=== PATIENT | male | born 1955 | race Caucasian/White ===

== ENCOUNTER 2021-06-22 08:59 | Emergency (ER) | payer MEDICARE, BC ==
--- NOTE | 2021-06-22 09:48 | EDM.PDOC ---
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 No fever, chills, or SOB. He has had some nasal discharge and sneezing. Does not feel ill. Took generic Contact recently and is feeling a bit better. I worried he is getting pneumonia. Onset: Gradual Onset Date: 06/16/21 Duration: Day(s): (6) Location: Reports: Chest Quality: Reports: Other (no pain) Severity: Mild Improves with: Reports: Other (? being upright) Worsens with: Reports: Other (lying down) Context: Reports: Other (See HPI) Associated Symptoms: Reports: Cough. Denies: Chest Pain, Fever/Chills, Shortness of Breath Treatments TIME RECORDER: Reports: Other (see below) (generic Contact) - Related Data Allergies Allergy/AdvReac Type Severity Reaction Status Date / Time No Known Allergies Allergy Verified 06/22/21 09:24 Home Meds: Home Meds Pravastatin [Pravachol] 40 mg PO DAILY 06/22/21 [History] glipiZIDE [Glucotrol] 5 mg PO DAILY 06/22/21 [History] lisinopriL [Lisinopril] 20 mg PO DAILY 06/22/21 [History] metFORMIN [Glucophage] 2.5 tab PO BID 06/22/21 [History] Social & Family History - Tobacco Use Tobacco Use Status *Q: Never Tobacco User ED ROS GENERAL - Review of Systems Review Of Systems: See Below Constitutional: Reports: No Symptoms HEENT: Reports: Rhinitis Respiratory: Reports: Cough. Denies: Shortness of Breath, Wheezing, Pleuritic Chest Pain, Sputum, Hemoptysis Cardiovascular: Reports: No Symptoms Skin: Reports: No Symptoms ED EXAM, GENERAL - Physical Exam Exam: See Below Exam Limited By: No Limitations General Appearance: Alert, WD/WN, No Apparent Distress Eye Exam: Bilateral Eye: Normal Inspection Ears: Normal External Exam, Normal Canal, Normal TMs, Hearing Loss, Other (bilat hearing aids). No: Hearing Grossly Normal Ear Exam: Bilateral Ear: Auricle Normal, Canal Normal, TM normal Nose: Normal Inspection, No Blood Throat/Mouth: Normal Inspection, Normal Lips, Normal Oropharynx, Normal Voice, No Airway Compromise Head: Atraumatic, Normocephalic Neck: Normal Inspection Respiratory/Chest: No Respiratory Distress, Lungs Clear, Normal Breath Sounds, No Accessory Muscle Use Cardiovascular: Regular Rate, Rhythm, No Edema Extremities: Normal Inspection, Normal Range of Motion, Non-Tender, No Pedal Edema Neurological: Alert, Oriented, CN II-XII Intact, Normal Cognition, No Motor/Sensory Deficits Psychiatric: Normal Affect, Normal Mood Skin Exam: Warm, Dry, Intact, Normal Color, No Rash Course - Vital Signs Last Recorded V/S: Last Vital Signs Temp 36.3 C 06/22/21 09:23 Pulse 89 06/22/21 09:23 Resp 20 06/22/21 09:23 BP 168/84 H 06/22/21 09:23 Pulse Ox 96 06/22/21 09:23 Departure - Departure Time of Disposition: 09:46 Disposition: Home, Self-Care 01 Condition: Good Clinical Impression: Allergic rhinitis with postnasal drip, Cough - Discharge Information *PRESCRIPTION DRUG MONITORING PROGRAM REVIEWED*: Not Applicable *COPY OF PRESCRIPTION DRUG MONITORING REPORT IN PATIENT JUSTO: Not Applicable Instructions: Allergic Rhinitis, Adult, [id number] Referrals: Onur Kiser MD [Primary Care Provider] - Additional Instructions: I would recommend Yola for the allergy sx's and Robitussin DM or Delsym for cough. Recheck with Dr. Kiser if not improving. Return here for fever or SOB. Sepsis Event Note (ED) - Evaluation Sepsis Screening Result: No Definite Risk - Focused Exam Vital Signs: Vital Signs Temp Pulse Resp BP Pulse Ox 06/22/21 09:23 36.3 C 89 20 168/84 H 96
== END 2021-06-22 09:58 | disposition home or self-care (01) ==
LOC: JP.ED 08:59
DX: J30.9 Allergic rhinitis, unspecified (principal); R05.9 Cough, unspecified; Z79.899 Other long term (current) drug therapy
CPT/HCPCS: 99283

== ENCOUNTER 2021-10-08 07:08 | Day surgery (SDC) | payer MEDICARE, BC ==
[~2021-10-08 07:08] MED LIST: Bupivacaine 0.5% 50 ML MDV ONE; Bupivacaine 0.5%/EPINEPHrine 1:200,000 50 ML MDV ONE; Lidocaine 1% with EPINEPHrine 1:100,000 50 ML MDV ONE; Meropenem 500 MG SDV ONE; Midazolam 1 MG/ML 2 ML SDV ONE; Propofol 200 MG/20 ML SDV ONE; fentaNYL 100 MCG/2 ML SDV ONE
[2021-10-08] MEDS ORDERED: Acetaminophen 500 MG Tab PO ONE (07:15)
[2021-10-08] MEDS ORDERED: Lactated Ringers 1,000 ML IV SCH (07:30)
[2021-10-08] MEDS ORDERED: ceFAZolin 2 GM in Premix Bag 1 BAG IV ONE (08:15)
[2021-10-08] MEDS ORDERED: fentaNYL 100 MCG/2 ML SDV ONE (08:30)
[2021-10-08] MEDS ORDERED: Propofol 200 MG/20 ML SDV ONE ×2 (08:36→09:07)
[2021-10-08] MEDS ORDERED: Ketorolac 30 MG/ML SDV ONE (08:38)
[2021-10-08] MEDS ORDERED: Bupivacaine 0.5% 30 ML SDV INFILT ONE (09:00)
[2021-10-08] MEDS ORDERED: Lidocaine 1% with EPINEPHrine 1:100,000 50 ML MDV INFILT ONE (09:00)
[2021-10-08] MEDS ORDERED: oxyCODONE 5 MG Tab PO PRN (10:50)
[2021-10-08] MEDS ORDERED: Ibuprofen 600 MG Tab PO PRN (10:50)
== END 2021-10-08 11:35 | disposition home or self-care (01) ==
LOC: JP.SDS 07:08
PROVIDERS: ATTEND Surgery
DX: K40.30 Unilateral inguinal hernia, with obstruction, without gangrene, not specified as recurrent (principal); N43.3 Hydrocele, unspecified; I10 Essential (primary) hypertension; E78.5 Hyperlipidemia, unspecified; E11.9 Type 2 diabetes mellitus without complications; E66.9 Obesity, unspecified; Z87.891 Personal history of nicotine dependence
CPT/HCPCS: A9270-GY; C1713; C1781; J0690; J1885; J2020; J2185; J2250; J2704; J3010; J3490; J7120

== ENCOUNTER 2023-02-19 10:02 | Emergency (ER) | payer MEDICARE, BC ==
[2023-02-19 11:04] LABS: APPEARANCE,URINE CLOUDY (CLEAR); BILIRUBIN,URINE NEGATIVE (NEGATIVE); COLOR,URINE YELLOW (YELLOW); GLUCOSE,URINE 100 mg/dL (NEGATIVE); KETONES,URINE NEGATIVE (NEGATIVE); LEUKOCYTE ESTERASE,URINE SMALL (NEGATIVE); NITRITE,URINE NEGATIVE (NEGATIVE); OCCULT BLOOD,URINE LARGE (NEGATIVE); PH,URINE 5.5 (5.0-8.0); PROTEIN,URINE 30 mg/dL (NEGATIVE); UROBILINOGEN,URINE 0.2 EU/dL (0.2-1.0)
[2023-02-19 11:14] LABS: AMORPHOUS SEDIMENT,URINE NOT SEEN; BACTERIA,URINE MODERATE; EPITHELIAL CELLS,URINE RARE; MUCUS,URINE FEW; RBC,URINE 0-5 (0-5); WBC,URINE 30-40 (0-5)
== END 2023-02-19 12:08 | disposition home or self-care (01) ==
LOC: JP.ED 10:02
DX: N39.0 Urinary tract infection, site not specified (principal); R31.9 Hematuria, unspecified; E78.00 Pure hypercholesterolemia, unspecified; I10 Essential (primary) hypertension; E11.9 Type 2 diabetes mellitus without complications; Z87.891 Personal history of nicotine dependence; Z79.899 Other long term (current) drug therapy; Z79.84 Long term (current) use of oral hypoglycemic drugs
CPT/HCPCS: 81001; 87086; 99283